=== PATIENT | male | born 1960 | race Caucasian/White ===

== ENCOUNTER → 2023-03-14 | Day surgery (SDC) | payer OTHER ==
[~2023-03-14] MED LIST: ADVAIR 500/28 DISKU1 INH; FLONASE ALLERG9.9 ML NAS; LISINOPRIL10 MG PO; MELOXICAM; NORCO 325 MG-51 TAB PO; ORPHENADRINE C100 MG PO; ZYRTEC10 M3 PO
== END | disposition home or self-care (01) ==
LOC: MSO 07:11
DX: Z12.11 Encounter for screening for malignant neoplasm of colon (principal); D12.2 Benign neoplasm of ascending colon; K57.30 Diverticulosis of large intestine without perforation or abscess without bleeding; E66.01 Morbid (severe) obesity due to excess calories; Z68.43 Body mass index [BMI] 50.0-59.9, adult
CPT/HCPCS: 00811; J2704; J3010; J7120

== ENCOUNTER 2023-08-30 01:18 | Emergency (ER) | payer OTHER ==
[~2023-08-30] VITALS: Ht 180.3 cm; Wt 190.9 kg
[2023-08-30 03:24] VITALS: BP 152/99
[2023-08-30 04:03] LABS: PH-URINE 5.5 (5.0 - 8.0); URINE APPEARANCE CLOUDY (CLEAR); URINE BILIRUBIN NEGATIVE (NEGATIVE); URINE COLOR YELLOW (YELLOW); URINE GLUCOSE 1+ (NEGATIVE); URINE KETONE TRACE (NEGATIVE); URINE PROTEIN(semi-quant) NEGATIVE (NEGATIVE)
[2023-08-30 04:04] LABS: URINE BLOOD 3+ (NEGATIVE); URINE LEUKOCYTE ESTERASE NEGATIVE (NEGATIVE); URINE NITRATE NEGATIVE (NEGATIVE); URINE WBC 0-1 /hpf (0-3)
[2023-08-30] MEDS ORDERED: FLOMAX0.4 MG PO (04:10)
[2023-08-30] MEDS ORDERED: OZEMPIC1 MG/0.71 SQ (04:10)
== END 2023-08-30 03:24 | disposition home or self-care (01) ==
LOC: ED 01:18
PROVIDERS: Family Medicine
DX: R33.9 Retention of urine, unspecified (principal)

== ENCOUNTER → 2023-09-12 | Outpatient (CLI) | payer OTHER ==
[~2023-09-12] MED LIST changes: +FLOMAX0.4 MG PO; +OZEMPIC1 MG/0.71 SQ
== END ==
LOC: RAD 10:50
DX: Z01.818 Encounter for other preprocedural examination (principal)